=== PATIENT | female | born 1980 ===

== ENCOUNTER 2024-02-13 14:14 | Outpatient (CLI) | payer OTHER ==
--- NOTE | 2024-02-16 09:29 | Mammography Report ---
BILATERAL DIGITAL SCREENING MAMMOGRAM 3D/2D WITH EXAGGERATED CC: 02/13/2024 CLINICAL: Routine screening. Comparison is made to exams dated: 01/08/2023 mammogram and 01/09/2022 [facility] [place]. Both breasts are heterogeneously dense, which may obscure small masses (category c / 51-75% glandular tissue). There are grouped fine punctate calcifications in the left breast at 1 o'clock middle depth. No other significant masses, calcifications, or other findings are seen in either breast. IMPRESSION: INCOMPLETE: NEEDS ADDITIONAL IMAGING EVALUATION The grouped fine punctate calcifications in the left breast are indeterminate. Additional views are recommended. Based on the Tyrer Cuzick model (a risk assessment model) the patient's lifetime risk is 16.2% and he r 10 year risk is 2.5%. According to the ACR, ACS, and NCCN guidelines, an annual breast MRI exam jenniffer ng with mammogram is recommended if the patient's lifetime risk is 20% or greater. This exam was interpreted at Station ID: [id number]. NOTE: For mammograms, a report in lay terms will be sent to the patient. Approximately 15% of breast malignancies will not be visualized mammographically. In the management of a palpable breast mass, a negative mammogram must not discourage biopsy of a clinically suspicious lesion. Electronically Signed By: Regulo Jerez M.D. slc/:02/13/2024 16:30:17 ACR BI-RADS Category 0: Incomplete 3340F PARENCHYMAL PATTERN: (D) - The breast(s) demonstrate(s) heterogeneously dense fibroglandular virgil burdick. BI-RADS CATEGORY: (0) - 0 RECOMMENDATION: (ADDMAM) - Recommend additional mammographic views. [id number] Immediate follow-up LATERALITY: (B)
== END 2024-02-13 14:15 | disposition home or self-care (01) ==
LOC: DI 14:14
PROVIDERS: ATTEND Physician Assistant Medical
DX: Z12.31 Encounter for screening mammogram for malignant neoplasm of breast (principal); R92.333 Mammographic heterogeneous density, bilateral breasts; R92.1 Mammographic calcification found on diagnostic imaging of breast

== ENCOUNTER 2024-03-03 14:05 | Outpatient (CLI) | payer OTHER ==
[2024-03-03 19:44] LABS: BASOPHILS % (AUTO) 0.6 %; HCT - HEMATOCRIT 40.8 % (37.0-47.0); HGB - HEMOGLOBIN 13.4 g/dL (12.0-16.0); LYMPHOCYTES # (AUTO) 1.8 10^3/uL (1.5-3.5); LYMPHOCYTES % (AUTO) 25.8 %; MEAN CORPUSCULAR HEMOGLOBIN 30.5 pg (27.0-31.0); MEAN CORPUSCULAR HGB CONC 32.8 g/dL (32.0-36.0); MEAN CORPUSCULAR VOLUME 92.7 fL (81.0-99.0); MEAN PLATELET VOLUME 10.7 fL (7.9-10.8); MONOCYTES # (AUTO) 0.3 10^3/uL (0.0-1.0); MONOCYTES % (AUTO) 4.7 %; NEUTROPHILS # (AUTO) 4.7 10^3/uL (1.5-6.6); NEUTROPHILS % (AUTO) 68.8 %; PLT - PLATELET COUNT 252 10^3/uL (130-450); RED CELL DISTRIBUTION WIDTH 12.2 % (12.0-15.0); WHITE BLOOD COUNT 6.8 x10^3/uL (4.8-10.8)
[2024-03-03 20:08] LABS: ALBUMIN 4.5 g/dL (3.2-5.5); ALBUMIN/GLOBULIN RATIO 1.7 (1.0-2.2); ALKALINE PHOSPHATASE 30 IU/L (42-121); ALT ALANINE AMINOTRANSFERASE 15 IU/L (10-60); AST ASPARTATE AMINOTRANSFERASE 15 IU/L (10-42); BILIRUBIN,TOTAL 0.4 mg/dL (0.2-1.0); BUN - BLOOD UREA NITROGEN 14 mg/dL (6-20); CALCIUM 9.9 mg/dL (8.5-10.3); CARBON DIOXIDE - CO2 31 mmol/L (21-32); CHLORIDE 104 mmol/L (101-111); CHOL/HDL RATIO 3.6 (<4.4); CHOLESTEROL 167 mg/dL; CREATININE 0.8 mg/dL (0.6-1.3); GFR - MDRD 79 (>89); GLUCOSE 91 mg/dL (74-104); HDL CHOLESTEROL 46 mg/dL; LDL CHOLESTEROL,CALCULATED 97 mg/dL; LDL/HDL RATIO 2.1 (<4.4); POTASSIUM 4.9 mmol/L (3.5-4.5); SODIUM 138 mmol/L (135-145); TOTAL PROTEIN 7.1 g/dL (6.4-8.9); TRIGLYCERIDES 118 mg/dL (48-352); VLDL CHOLESTEROL 24 mg/dL
[2024-03-03 20:19] LABS: THYROID STIMULATING HORMONE 2.51 uIU/mL (0.34-5.60)
== END 2024-03-03 14:06 | disposition home or self-care (01) ==
LOC: LAB.S 14:05
PROVIDERS: ATTEND Registered Nurse
DX: E03.9 Hypothyroidism, unspecified (principal); Z13.9 Encounter for screening, unspecified
CPT/HCPCS: 36415; 80053; 80061; 83721; 84443; 85025

== ENCOUNTER 2024-03-09 10:31 | Outpatient (CLI) | payer OTHER ==
--- NOTE | 2024-03-10 10:28 | Mammography Report ---
UNILATERAL LEFT DIGITAL DIAGNOSTIC MAMMOGRAM 3D/2D WITH MAGNIFICATION: 03/09/2024 CLINICAL: Patient returns for magnification views of microcalcifications in the left breast. Comparison is made to exams dated: 02/13/2024 mammogram - [facility], 01/08/2023 mamm ogram, and 01/09/2022 mammogram - [facility] intervention. The left breast is heterogeneously dense, which may obscure small masses (category c / 51-75% glandul ar tissue). There are grouped fine amorphous heterogeneous calcifications in the left breast at 1 o'clock middle depth. These are seen in additional views. No other significant masses or calcifications are seen in the breast. IMPRESSION: SUSPICIOUS OF MALIGNANCY The grouped fine amorphous heterogeneous calcifications in the left breast are at a low suspicion for malignancy. A stereotactic biopsy is recommended. Findings and recommendations were discussed with the patient by Dr. Sykes during today's examination. Based on the Tyrer Cuzick model (a risk assessment model) the patient's lifetime risk is 16.8% and he r 10 year risk is 2.6%. According to the ACR, ACS, and NCCN guidelines, an annual breast MRI exam jenniffer ng with mammogram is recommended if the patient's lifetime risk is 20% or greater. This exam was interpreted at Station ID: [id number]. NOTE: For mammograms, a report in lay terms will be sent to the patient. Approximately 15% of breast malignancies will not be visualized mammographically. In the management of a palpable breast mass, a negative mammogram must not discourage biopsy of a clinically suspicious lesion. Electronically Signed By: Elton Sahni M.D. aty/:03/09/2024 11:30:40 ACR BI-RADS Category 4a: Suspicious abnormality - low suspicion for malignancy 3344F PARENCHYMAL PATTERN: (D) - The breast(s) demonstrate(s) heterogeneously dense fibroglandular parmarcelinay ma. BI-RADS CATEGORY: (4a) - Low Susp Biopsy [id number] Immediate follow-up LATERALITY: (L)
== END 2024-03-09 10:32 | disposition home or self-care (01) ==
LOC: DI 10:31
PROVIDERS: ATTEND Physician Assistant Medical
DX: R92.1 Mammographic calcification found on diagnostic imaging of breast (principal); R92.332 Mammographic heterogeneous density, left breast

== ENCOUNTER 2024-04-12 09:43 | Outpatient (CLI) | payer OTHER ==
[2024-04-12] MEDS ORDERED: LIDOCAINE 1%-EPI 1:100000 20 ML MDV ONE (09:49)
[2024-04-12] MEDS ORDERED: LIDOCAINE-MPF 1% 5 ML VIAL ONE (09:49)
[2024-04-12] MEDS: LIDOCAINE 1%-EPI 1:100000 20 ML MDV SUBQ ONE (11:30)
[2024-04-12] MEDS: LIDOCAINE-MPF 1% 5 ML VIAL TD ONE (11:31)
--- NOTE | 2024-04-16 09:13 | Mammography Report ---
STEREOTACTIC GUIDED BIOPSY LEFT BREAST USING VACUUM DEVICE WITH MARKING DEVICE INSERTED- - LEFT BREAS T POST-PROCEDURE IMAGING FOR MARKER PLACEMENT: 04/12/2024 CLINICAL: Microcalcifications left breast. Post left breast stereotactic biopsy, clip placement imagi ng. Correlation is made to exams dated: 03/09/2024 mammogram, 02/13/2024 mammogram - [facility], 01/08/2023 mammogram, and 01/09/2022 mammogram - [facility]. A stereotactic guided biopsy was performed for the concerning area of grouped calcifications located in the left breast at 1 o'clock middle depth. This was described on the previous mammography report. The skin was prepped in the usual manner. Local anesthetic was administered to the access site. A skin shayna was made in the breast. The abnormality was approached from the craniocaudal aspect. A 1 0 gauge biopsy needle was placed adjacent to the abnormality under computer guidance and confirmatory stereotactic mammography images were obtained to document needle placement. Once the needle was doc umented to be in the correct location, six specimens were obtained using a vacuum assisted device. A clip was inserted into the biopsy cavity. Post procedure imaging demonstrates the location device a t the targeted area. The specimens were sent to the laboratory for pathological analysis. Specimen radiograph contains the targeted calcifications. IMPRESSION: STEREOTACTIC GUIDED BIOPSY BENIGN Stereotactic guided biopsy of the area of grouped calcifications in the left breast at 1 o'clock midd le depth was successful. Waiting for pathology results. A final report will be issued when these bec ome available. Stereotactic guided biopsy of the area of grouped calcifications in the left breast at 1 o'clock midd le depth was successful. Pathology indicates benign fatty breast tissue with densely fibrous zones a nd microcalcifications associated with benign lobules. Pathology results are concordant with imaging findings. Return to annual mammogram screening schedule is recommended. This exam was interpreted at Station ID: [id number]. Nahum Sahni M.D. ,aty/:04/14/2024 22:00:47 BI-RADS CATEGORY: () - Mammogram [id number] return to screening LATERALITY: (B)
== END 2024-04-12 09:44 | disposition home or self-care (01) ==
LOC: DI 09:43
PROVIDERS: ATTEND Physician Assistant Medical
DX: R92.0 Mammographic microcalcification found on diagnostic imaging of breast (principal)
CPT/HCPCS: 19081